=== PATIENT | female | born 1950 | race African-American/Black ===

== ENCOUNTER 2020-11-27 21:51 | Emergency (ER) | payer OTHER ==
[~2020-11-27] VITALS: Ht 165.1 cm; Wt 79.5 kg
[2020-11-28 00:42] VITALS: BP 149/87
== END 2020-11-28 00:55 | disposition home or self-care (01) ==
LOC: EMS 21:56
DX: I83.892 Varicose veins of left lower extremity with other complications (principal); I10 Essential (primary) hypertension
CPT/HCPCS: 99284; Z7502

== ENCOUNTER 2020-12-20 07:27 | Emergency (ER) | payer OTHER ==
[~2020-12-20] VITALS: Ht 162.6 cm; Wt 77.3 kg
[2020-12-20] MEDS ORDERED: AMLO2.5T96 PO (07:34)
[2020-12-20] MEDS ORDERED: OXYM15MI NS (07:34)
[2020-12-20 08:58] VITALS: BP 166/93
== END 2020-12-20 09:10 | disposition home or self-care (01) ==
LOC: EMS 07:30
DX: S93.504A Unspecified sprain of right lesser toe(s), initial encounter (principal); J45.909 Unspecified asthma, uncomplicated; I10 Essential (primary) hypertension; X50.1XXA Overexertion from prolonged static or awkward postures, initial encounter; Y93.89 Activity, other specified; Y92.89 Other specified places as the place of occurrence of the external cause; Y99.8 Other external cause status
CPT/HCPCS: 99283